=== PATIENT | female | born 1950 | race Caucasian/White ===

== ENCOUNTER 2018-04-23 04:16 | Emergency (ER) | payer MEDICARE, OTHER ==
[2018-04-23] MEDS ORDERED: Ondansetron 4 MG Tab.DIS PO ONE (04:46)
[2018-04-23] MEDS ORDERED: Meclizine 25 MG Tab PO ONE (04:46)
--- NOTE | 2018-04-23 04:50 | EDM.PDOC ---
<OfficerLavelle - Last Filed: 04/23/18 04:46> ED HPI GENERAL MEDICAL PROBLEM - General Chief Complaint: General Stated Complaint: MEDICAL VIA [facility] Time Seen by Provider: 04/23/18 04:40 Source of Information: Reports: Patient, EMS, RN Notes Reviewed History Limitations: Reports: No Limitations - History of Present Illness INITIAL COMMENTS - FREE TEXT/NARRATIVE: 67-year-old female presents to the emergency department complaint of dizziness, she arrives via EMS. She states she's never had these symptoms before she awoke this morning to go to the bathroom sudden onset of dizziness with nausea no vomiting. She states the dizziness has resolved if she lays flat and still however the dizziness will resume if she sits up - Related Data Allergies Allergy/AdvReac Type Severity Reaction Status Date / Time diphenhydramine Allergy Hyperactivi Verified 04/23/18 04:21 [From Benadryl] ty Gprsypd-[id number]-[id number] Reductase Allergy Pain Verified 04/23/18 04:21 Inhibitor Home Meds: Home Meds DULoxetine [Cymbalta] 20 mg PO DAILY 04/23/18 [History] HCTZ/Triamterene [Maxzide 25-37.5 MG] 1 tab PO DAILY 04/23/18 [History] Potassium Chloride 1 tab PO DAILY 04/23/18 [History] Rosuvastatin Calcium 5 mg PO DAILY 04/23/18 [History] Past Medical History HEENT History: Reports: Cataract, Impaired Vision Cardiovascular History: Reports: High Cholesterol, 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: Musculoskeletal History: Reports: Fracture, Fibromyalgia, Osteoarthritis Psychiatric History: Reports: Depression Endocrine/Metabolic History: Reports: Obesity/BMI 30+ - Infectious Disease History Infectious Disease History: Reports: Chicken Pox, Mononucleosis, Shingles - Past Surgical History HEENT Surgical History: Reports: Adenoidectomy, Cataract Surgery, Tonsillectomy GI Surgical History: Reports: Appendectomy, Cholecystectomy, Colonoscopy Female Surgical History: Reports: Tubal Ligation Musculoskeletal Surgical History: Reports: Other (See Below) Other Musculoskeletal Surgeries/Procedures:: wrist surgery Social & Family History - Tobacco Use Smoking Status *Q: Never Smoker - Caffeine Use Caffeine Use: Reports: Coffee - Alcohol Use Days Per Week of Alcohol Use: 3 Number of Drinks Per Day: 2 Total Drinks Per Week: 6 - Recreational Drug Use Recreational Drug Use: No ED ROS GENERAL - Review of Systems Review Of Systems: See Below Constitutional: Reports: No Symptoms HEENT: Reports: No Symptoms Respiratory: Reports: No Symptoms Cardiovascular: Reports: No Symptoms GI/Abdominal: Reports: Nausea : Reports: No Symptoms Musculoskeletal: Reports: No Symptoms Skin: Reports: No Symptoms Neurological: Reports: Dizziness ED EXAM, GENERAL - Physical Exam Exam: See Below Exam Limited By: No Limitations General Appearance: Alert, WD/WN, No Apparent Distress Eye Exam: Bilateral Eye: EOMI, Normal Inspection, Other (No nystagmus, cover and uncover test negative) Ears: Normal External Exam, Normal Canal, Hearing Grossly Normal, Normal TMs Nose: Normal Inspection, Normal Mucosa, No Blood Throat/Mouth: Normal Inspection, Normal Lips, Normal Teeth, Normal Gums, Normal Oropharynx, Normal Voice, No Airway Compromise Head: Atraumatic, Normocephalic Neck: Normal Inspection, Supple, Non-Tender, Full Range of Motion Respiratory/Chest: No Respiratory Distress, Lungs Clear, Normal Breath Sounds, No Accessory Muscle Use Cardiovascular: Regular Rate, Rhythm, No Murmur GI/Abdominal: Soft, Non-Tender Course - Vital Signs Last Recorded V/S: Last Vital Signs Temp 36.2 C 04/23/18 04:24 Pulse 72 04/23/18 06:26 Resp 20 04/23/18 06:26 BP 140/57 L 04/23/18 06:26 Pulse Ox 94 L 04/23/18 06:26 - Orders/Labs/Meds Orders: Active Orders 24 hr Category Date Time Status EKG Documentation Completion [RC] ASDIRECTED Care 04/23/18 06:14 Active Head wo Cont [CT] Stat Exams 04/23/18 06:44 Taken EKG 12 Lead [EK] Stat Ther 04/23/18 06:14 Ordered Meds: Medications Discontinued Medications Generic Name Dose Route Start Last Admin Trade Name Freq PRN Reason Stop Dose Admin Lorazepam 1 mg 04/23/18 05:36 04/23/18 05:41 Ativan PO 04/23/18 05:37 1 mg ONETIME ONE Administration Meclizine HCl 25 mg 04/23/18 04:46 04/23/18 05:11 Antivert PO 04/23/18 04:47 25 mg ONETIME ONE Administration Ondansetron HCl 4 mg 04/23/18 04:46 04/23/18 05:11 Zofran Odt PO 04/23/18 04:47 4 mg ONETIME ONE Administration Departure - Departure Disposition: Home, Self-Care 01 Clinical Impression: BPV (benign positional vertigo) Qualifiers: Laterality: unspecified laterality Qualified Code(s): H81.10 - Benign paroxysmal vertigo, unspecified ear - Discharge Information Referrals: PCP,None [Primary Care Provider] - Forms: ED Department Discharge <Jason Cadena G - Last Filed: 04/23/18 11:38> Course - Vital Signs Text/Narrative:: Sent to PT for consultation regarding Ken Maneuvers. Is better now after PT - Radiology Interpretation Free Text/Narrative:: Negative head CT CT Results Date: 04/23/18 CT Results Time: 08:00 Departure - Departure Time of Disposition: 11:38 Condition: Fair
[2018-04-23] MEDS ORDERED: LORazepam 1 MG Tab PO ONE (05:36)
== END 2018-04-23 12:00 | disposition home or self-care (01) ==
LOC: JP.ED 04:16
DX: H81.10 Benign paroxysmal vertigo, unspecified ear (principal); E78.00 Pure hypercholesterolemia, unspecified; I10 Essential (primary) hypertension; Z88.8 Allergy status to other drugs, medicaments and biological substances; Z79.899 Other long term (current) drug therapy
CPT/HCPCS: 70450; 93005; 93010; 99283; 99284; A9270